=== PATIENT | male | born 1995 | race African-American/Black ===

== ENCOUNTER 2023-07-19 20:28 | Emergency (ER) | payer OTHER, SELFPAY ==
[2023-07-19 20:56] VITALS: BP 112/73; PULSE 72; RESP 20; TEMP 37.2; O2SAT 99; BMI 22.9
--- NOTE | 2023-07-19 21:03 | DI.RAD.S_ITS ---
PROCEDURE: XR KNEE LT 3V INDICATIONS: Knee pain after twisting knee TECHNIQUE: 3 views of the knee were acquired. COMPARISON: None. FINDINGS: Bones: Postsurgical changes are seen from prior anterior cruciate ligament reconstruction. No fractures or dislocations. No suspicious bony lesions. Soft tissues: No joint effusion. Nonspecific ossification is seen projecting over the posterior intercondylar notch, possibly an intra-articular loose body or heterotopic ossification. IMPRESSION: 1. Postsurgical changes from prior anterior cruciate ligament reconstruction. 2. Nonspecific ossification posterior to the intercondylar notch. 3. Consider MRI for further evaluation if indicated clinically. Approved by: Kareem Alfaro M.D. on 07/19/2023 at 21:27
--- NOTE | 2023-07-19 21:55 | ED.LOWEXIN ---
HPI - Extremity Injury (Lower) General Chief Complaint: Extremity Injury, Lower Stated Complaint: lt knee injury Time Seen by Provider: 07/19/23 21:14 Source: patient Mode of arrival: Ambulatory History of Present Illness HPI Narrative: 27-year-old male presents for left knee pain since earlier this afternoon. Patient was playing a basketball game when he thinks he may have twisted and felt something happened to his left knee. Pain worsened and he was now having difficulty bearing weight on his left leg due to pain. No medications taken prior to arrival. Reports history of ACL and meniscus surgery several years ago and is concerned that he may have re-injured his ACL and meniscus. Denies numbness or weakness Related Data Allergies Allergy/AdvReac Type Severity Reaction Status Date / Time No Known Drug Allergies Allergy Verified 07/19/23 21:02 Review of Systems Review of Systems Narrative: Negative except as noted above Patient History Social History Smoking Status: Current every day smoker Smoking Status: Current every day smoker tobacco type: vaping alcohol intake frequency: holidays/special occasions only Substance Use Type: does not use Exam Initial Vital Signs Initial Vital Signs: Vital Signs Temperature 98.9 F 07/19/23 20:56 Pulse Rate 72 07/19/23 20:56 Respiratory Rate 20 07/19/23 20:56 Blood Pressure 112/73 07/19/23 20:56 Pulse Oximetry 99 07/19/23 20:56 Oxygen Delivery Method Room Air 07/19/23 20:56 Const: Awake, alert, no acute distress, nontoxic appearing MSK: No deformity, minimal swelling medial left knee, range of motion decreased secondary to pain, no reproducible tenderness to palpation, patella in appropriate position Skin: Warm, Dry, intact, no rashes Neuro: AO x3, CN II-XII grossly intact, moves all extremities Course Orders Ordered: ED Orders 07/19/23 21:03 XR knee LT 3V Stat Vital Signs Vital signs: Vital Signs - 8 hr 07/19/23 20:56 07/19/23 22:32 Temperature 98.9 F Pulse Rate 72 68 Respiratory Rate 20 14 Blood Pressure 112/73 115/67 Pulse Oximetry 99 99 Oxygen Delivery Method Room Air Room Air MDM - Extremity Injury (Lower) Differential Diagnosis Differential diagnosis: Likely ankle sprain and strain, acute internal derangement of knee and fracture of femur Imaging Data Extremity x-ray #1: Radiologist's Impression: PROCEDURE: XR KNEE LT 3V INDICATIONS: Knee pain after twisting knee TECHNIQUE: 3 views of the knee were acquired. COMPARISON: None. FINDINGS: Bones: Postsurgical changes are seen from prior anterior cruciate ligament reconstruction. No fractures or dislocations. No suspicious bony lesions. Soft tissues: No joint effusion. Nonspecific ossification is seen projecting over the posterior intercondylar notch, possibly an intra-articular loose body or heterotopic ossification. IMPRESSION: 1. Postsurgical changes from prior anterior cruciate ligament reconstruction. 2. Nonspecific ossification posterior to the intercondylar notch. 3. Consider MRI for further evaluation if indicated clinically. Approved by: Kareem Alfaro M.D. on 07/19/2023 at 21:27 MDM Narrative Medical decision making narrative: Well-appearing patient with knee injury and pain after playing basketball. No obvious deformity, no reproducible tenderness to palpation. X-rays negative for acute bony abnormalities. Patient was placed in a knee immobilizer and given crutches for comfort and ambulatory support. Rice instructions counseled with patient at bedside. Recommended orthopedic follow up to ensure that he was appropriately and if he needs any additional imaging he can be followed by Orthopedic specialty. ED return precautions discussed at bedside. Patient expressed understanding of the plan and is in agreement at this time. All questions answered at the time of discharge. Discharge Plan Departure Patient Disposition: Home Clinical Impression: Acute knee pain Qualifiers: Laterality: left Qualified Code(s): M25.562 - Pain in left knee Instructions: DI for Knee Sprain Activity Restrictions/Additional Instructions: Wear the knee immobilizer and use the crutches as needed for support. I recommend light duty until seen and cleared by Orthopedic surgery. Take Tylenol and Motrin as needed for pain, apply ice as needed for comfort, and elevate your knee above heart level when at rest to decrease swelling. Follow up with Orthopedics Referrals: Provider,Mariah MARTINEZ [Primary Care Provider] - Benjie Foley MD [Physician] - Stand Alone Forms: Patient Portal/API, Work Release Note
--- NOTE | 2023-07-19 22:26 | PC.NURSE ---
Tall crutches given set at 6', handles moved to top bar. Pt given verbal, written, and return demostration of crutch use
[2023-07-19 22:32] VITALS: BP 115/67; PULSE 68; RESP 14; O2SAT 99
== END 2023-07-19 22:34 | disposition home or self-care (01) ==
PROVIDERS: Emergency Provider Emergency Medicine
DX: M25.562 Pain in left knee (principal); X50.1XXA Overexertion from prolonged static or awkward postures, initial encounter; Y93.67 Activity, basketball
CPT/HCPCS: 73562; 99283